=== PATIENT | male | born 1970 | race Caucasian/White ===

== ENCOUNTER 2019-01-23 23:32 | Emergency (ER) | payer BC ==
--- NOTE | 2019-01-23 23:41 | ED ---
General Adult HPI - General Stated complaint: Neuro Deficits Time Seen by Provider: 01/23/19 23:34 - History of Present Illness Initial comments: Dictation was produced using [employer] dictation software. please excuse any grammatical, word or spelling errors. Chief Complaint: 48-year-old male witha past medical history presents with altered mental status. History of Present Illness: Patient is a 48-year-old male with no known medical history. He was in his usual state of health. Last seen normal was at approximately 8:15 this morning. Patient presents today with his . She reports that at approximately 9:45 PM she was on the phone with him he seemed to be okay at the time however was having word finding difficulties over the phone. She got home at approximately 10:15 PM. She went to their mobile home where she found him on the ground unresponsive. He did have his eyes open. He was incontinent to urine. EMS was on scene noted that he has stable vital signs. There is concern that patient is having a neurologic emergency. EMS reports the patient has not been moving the right side of his body. He hasn't followed commands either. The ROS documented in this emergency department record has been reviewed and confirmed by me. Those systems with pertinent positive or negative responses have been documented in the HPI. All other systems are other negative and/or noncontributory. PHYSICAL EXAM: General Impression: No acute distress HEENT: Normocephalic atraumatic, extra-ocular movements intact, pupils equal and reactive to light bilaterally, mucous membranes moist. Cardiovascular: Heart regular rate and rhythm, S1&S2 audible, no murmurs, rubs or gallops Chest: Lungs clear to auscultation bilaterally, no rhonchi, no wheeze, no rales Abdomen: Bowel sounds present, abdomen soft, non-tender, non-distended, no organomegaly Musculoskeletal: Pulses present and equal in all extremities, no peripheral edema Motor: Flaccid paralysis to the right upper and right lower extremity Neurological: Does not follow commands, mute, withdraws from pain of the left upper and left lower extremity. No movement of the right upper or lower extremity. Skin: Intact with no visualized rashes ED course: 48-year-old male presents with acute neuro deficits. Vital signs upon arrival are within acceptable limits. Patient has flaccid paralysis of the right upper and right lower extremity. Patient given an initial NIH of 25. Code stroke was paged. Patient went rapidly to CT and CTA. There appears to be dense lesion in the internal carotid artery of the left side. Patient case was discussed with Dr. Burden who recommends administering rectal aspirin and intravenous fluids. He requests the patient be transferred immediately to [facility] for mechanical thrombectomy. Disposition was discussed with who is agreeable. Patient to be transferred. Patient care accepted by [facility] physician Dr. Dewitt. EKG interpretation: Ventricular rate 61. No WI prolongation, no QTC prolongati on, no ST or T-wave changes noted. EKG compared to [default value] showing no changes. Overall, this EKG is unremarkable - Related Data Home Medications Medication Instructions Recorded Confirmed No Known Home Medications 01/23/19 01/23/19 Allergies Allergy/AdvReac Type Severity Reaction Status Date / Time No Known Allergies Allergy Unverified 01/23/19 23:39 Review of Systems ROS Statement: Those systems with pertinent positive or pertinent negative responses have been documented in the HPI. ROS Other: All systems not noted in ROS Statement are negative. Medical Decision Making - Lab Data Result diagrams: 01/23/19 23:30 Lab Results 01/23/19 Range/Units 23:30 WBC 7.0 (3.8-10.6) k/uL RBC 4.56 (4.30-5.90) m/uL Hgb 13.7 (13.0-17.5) gm/dL Hct 41.3 (39.0-53.0) % MCV 90.5 (80.0-100.0) fL MCH 30.0 (25.0-35.0) pg MCHC 33.1 (31.0-37.0) g/dL RDW 13.3 (11.5-15.5) % Plt Count 130 L (150-450) k/uL Neutrophils % 62 % Lymphocytes % 27 % Monocytes % 6 % Eosinophils % 3 % Basophils % 0 % Neutrophils # 4.3 (1.3-7.7) k/uL Lymphocytes # 1.9 (1.0-4.8) k/uL Monocytes # 0.4 (0-1.0) k/uL Eosinophils # 0.2 (0-0.7) k/uL Basophils # 0.0 (0-0.2) k/uL Disposition Clinical Impression: Cerebrovascular accident Disposition: OTHER INSTITUTION NOT DEFINED Condition: Critical Referrals: Sadia Martino DO [Primary Care Provider] - 1-2 days Time of Disposition: 00:07 - Out of Hospital Transfer - Req. Specs Out of Hospital Transfer - Requested Specifics: Other Emergency Center ([facility] for neuroendovascular procedure)
[2019-01-23 23:49] LABS: Basophils % (A) 0 %; Eosinophils # (A) 0.2 k/uL (0-0.7); Eosinophils % (A) 3 %; HCT 41.3 % (39.0-53.0); HGB 13.7 gm/dL (13.0-17.5); Lymphocytes # (A) 1.9 k/uL (1.0-4.8); Lymphocytes % (A) 27 %; MCHC 33.1 g/dL (31.0-37.0); MCV 90.5 fL (80.0-100.0); Mean Platelet Volume 7.7; Monocytes # (A) 0.4 k/uL (0-1.0); Monocytes % (A) 6 %; Neutrophils # (A) 4.3 k/uL (1.3-7.7); Neutrophils % (A) 62 %; Platelet Count 130 k/uL (150-450); RBC 4.56 m/uL (4.30-5.90); RDW 13.3 % (11.5-15.5)
[2019-01-24] MEDS ORDERED: ASPIRIN 600 MG SUPP RECTAL STA
[2019-01-24] MEDS ORDERED: SODIUM CHLORIDE 0.9% 1,000 ML IV STA (00:02)
--- NOTE | 2019-01-24 00:09 | ED ---
Medical Decision Making - Lab Data Result diagrams: 01/23/19 23:30 Lab Results 01/23/19 Range/Units 23:30 WBC 7.0 (3.8-10.6) k/uL RBC 4.56 (4.30-5.90) m/uL Hgb 13.7 (13.0-17.5) gm/dL Hct 41.3 (39.0-53.0) % MCV 90.5 (80.0-100.0) fL MCH 30.0 (25.0-35.0) pg MCHC 33.1 (31.0-37.0) g/dL RDW 13.3 (11.5-15.5) % Plt Count 130 L (150-450) k/uL Neutrophils % 62 % Lymphocytes % 27 % Monocytes % 6 % Eosinophils % 3 % Basophils % 0 % Neutrophils # 4.3 (1.3-7.7) k/uL Lymphocytes # 1.9 (1.0-4.8) k/uL Monocytes # 0.4 (0-1.0) k/uL Eosinophils # 0.2 (0-0.7) k/uL Basophils # 0.0 (0-0.2) k/uL Critical Care Time Critical Care Time: Yes Total Critical Care Time: 31 Disposition Clinical Impression: Cerebrovascular accident Disposition: OTHER INSTITUTION NOT DEFINED Condition: Critical Referrals: Sadia Martino DO [Primary Care Provider] - 1-2 days - Out of Hospital Transfer - Req. Specs Out of Hospital Transfer - Requested Specifics: Other Emergency Center
[2019-01-24 00:10] LABS: Creatine Kinase 98 U/L (55-170)
[2019-01-24 00:11] VITALS: TEMP 96
--- NOTE | 2019-01-24 00:12 | CT ---
EXAM: CT Head Without Intravenous Contrast CLINICAL HISTORY: ITS.REASON CT Reason: neuro deficits TECHNIQUE: Axial computed tomography images of the head/brain without intravenous contrast. CTDI is 57.7 mGy and DLP is 1338 mGy-cm. This CT exam was performed using one or more of the following dose reduction techniques: automated exposure control, adjustment of the mA and/or kV according to patient size, and/or use of iterative reconstruction technique. COMPARISON: None FINDINGS: Brain: No acute infarct or hemorrhage. No extra-axial fluid collection. No mass effect or midline shift. Ventricles and sulci: Normal. No ventriculomegaly or intraventricular hemorrhage. Skull: Normal. No bony lesion or fracture. Subcutaneous tissues: Normal. Sinuses: Mild mucosal thickening in the right maxillary sinus and right sphenoid sinus. Mastoid air cells: Normal. Orbits: Grossly unremarkable. Other: Hyperdense left MCA which may represent thrombus. IMPRESSION: No definite acute infarct changes identified on this exam, but given the probable thrombus in the left MCA (hyperdense left MCA), recommend further evaluation with MRI.
--- NOTE | 2019-01-24 00:19 | CT ---
EXAM: CT Angiography Head With Intravenous Contrast CLINICAL HISTORY: ITS.REASON CT Reason: Neuro Deficits TECHNIQUE: Axial computed tomographic angiography images of the head with intravenous contrast using CT angiography protocol. CTDI is 11.2 mGy and DLP is 493.2 mGy-cm. This CT exam was performed using one or more of the following dose reduction techniques: automated exposure control, adjustment of the mA and/or kV according to patient size, and/or use of iterative reconstruction technique. MIP reconstructed images were created and reviewed. COMPARISON: None FINDINGS: Right internal carotid artery: No acute findings. Intracranial segment is patent with no significant stenosis. No aneurysm. Right anterior cerebral artery: Unremarkable. No occlusion or significant stenosis. No aneurysm. Right middle cerebral artery: Unremarkable. No occlusion or significant stenosis. No aneurysm. Right posterior cerebral artery: Unremarkable. No occlusion or significant stenosis. No aneurysm. Right vertebral artery: Unremarkable as visualized. Left internal carotid artery: Occlusion of the left internal carotid artery. Reconstitution of flow in the supraclinoid portion of the distal left ICA which may be via retrograde flow from the left anterior cerebral artery. No aneurysm. Left anterior cerebral artery: See above. Left middle cerebral artery: Occlusion of the left MCA with some reconstitution of flow in the cortical branch vessels. No aneurysm. Left posterior cerebral artery: Unremarkable. No occlusion or significant stenosis. No aneurysm. Left vertebral artery: Unremarkable as visualized. Basilar artery: Unremarkable. No occlusion or significant stenosis. No aneurysm. IMPRESSION: 1. Occlusion of the left internal carotid artery. Reconstitution of flow in the supraclinoid portion of the distal left ICA which may be via retrograde flow from the left anterior cerebral artery. 2. Occlusion of the left MCA with some reconstitution of flow in the cortical branch vessels. EXAM: CT Angiography Neck With Intravenous Contrast CLINICAL HISTORY: ITS.REASON CT Reason: Neuro Deficits TECHNIQUE: Axial computed tomographic angiography images of the neck with intravenous contrast using CT angiography protocol. CTDI is 11.2 mGy and DLP is 493.2 mGy-cm. This CT exam was performed using one or more of the following dose reduction techniques: automated exposure control, adjustment of the mA and/or kV according to patient size, and/or use of iterative reconstruction technique. MIP reconstructed images were created and reviewed. COMPARISON: None FINDINGS: VASCULATURE: Right common carotid artery: Unremarkable. No significant stenosis. No dissection or occlusion. Right internal carotid artery: Minimal atherosclerotic calcification in the right carotid bulb without significant stenosis. No dissection or occlusion. Right external carotid artery: Unremarkable. No occlusion. Right vertebral artery: Unremarkable. No significant stenosis. No dissection or occlusion. Left common carotid artery: Unremarkable. No significant stenosis. No dissection or occlusion. Left internal carotid artery: Occlusion of the left ICA. Left external carotid artery: Unremarkable. No occlusion. Left vertebral artery: Unremarkable. No significant stenosis. No dissection or occlusion. NECK: Bones/joints: No acute fracture. No dislocation. Soft tissues: Unremarkable as visualized. No mass. Dental: Dental disease. Thyroid: Punctate calcification in the left thyroid could be further evaluated with nonemergent dedicated ultrasound clinically indicated. 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 CAROTID STENOSIS REFERENCE USING NASCET CRITERIA: % ICA stenosis = (1 - narrowest ICA diameter/diameter of distal cervical ICA) x 100. Mild - <50% stenosis. Moderate - 50-69% stenosis. Severe - 70-94% stenosis. Near occlusion - 95-99% stenosis. Occluded - 100% stenosis. IMPRESSION: Occlusion of the left ICA. <MYCVCSECTION> Critical Value Communications 01/24/19 00:19 Call Doctor Regarding Critical stenosis/arterial occlusion, called Dr. Rosario on 01/24 00:18 (-04:00)
[2019-01-24 00:20] LABS: INR 0.9 (<1.2); Partial Thromboplastin Time 26.4 sec (22.0-30.0); Prothrombin Time 9.8 sec (9.0-12.0)
--- NOTE | 2019-01-24 00:21 | XR ---
EXAM: XR Chest, 1 View CLINICAL HISTORY: ITS.REASON XR Reason: altered mental status TECHNIQUE: Frontal view of the chest. COMPARISON: None FINDINGS: Hardware: None. Lungs/pleura: Right basilar opacity likely represents atelectasis. Elevation of the right hemidiaphragm. No pleural effusion or pneumothorax. Heart/mediastinum: Normal. No cardiomegaly. Soft tissues: Unremarkable. Bones: No acute fracture. Upper abdomen: Normal. IMPRESSION: Elevation of the right hemidiaphragm with right basilar atelectasis.
[2019-01-24 00:23] LABS: Creatine Kinase MB 0.4 ng/mL (0.0-2.4); Troponin I <0.012 ng/mL (0.000-0.034)
[2019-01-24 00:42] LABS: ALT 24 U/L (21-72); AST 20 U/L (17-59); Albumin 3.5 g/dL (3.5-5.0); Alkaline Phosphatase 58 U/L (38-126); Anion Gap 8 mmol/L; Blood Urea Nitrogen 16 mg/dL (9-20); Calcium 7.9 mg/dL (8.4-10.2); Carbon Dioxide 19 mmol/L (22-30); Chloride 114 mmol/L (98-107); Glucose 82 mg/dL (74-99); Potassium 3.5 mmol/L (3.5-5.1); Sodium 141 mmol/L (137-145); Total Bilirubin 0.3 mg/dL (0.2-1.3); Total Protein 5.9 g/dL (6.3-8.2)
[2019-01-24 00:48] LABS: Amorphous Sediment,Urine Rare /hpf; Appearance,Urine Clear (Clear); Bilirubin,Urine Negative (Negative); Blood,Urine Negative (Negative); Color,Urine Yellow; Glucose,Urine (UA) Negative (Negative); Ketones,Urine Negative (Negative); Leukocyte Esterase,Urine Negative (Negative); Mucus,Urine Rare /hpf; Nitrite,Urine Negative (Negative); PH, Urine 7.5 (5.0-8.0); Protein,Urine Negative (Negative); RBC,Urine 1 /hpf (0-5); Specific Gravity,Urine 1.039 (1.001-1.035); Urobilinogen,Urine <2.0 mg/dL (<2.0)
[2019-01-24 00:58] VITALS: PULSE 93
[2019-01-24 01:01] LABS: Amphetamine Screen,Urine Not Detected (NotDetected); Barbiturate Screen,Urine Not Detected (NotDetected); Benzodiazepines Screen,Urine Not Detected (NotDetected); Cocaine Screen,Urine Not Detected (NotDetected); Methadone Screen, Urine Not Detected (NotDetected); Opiate Screen,Urine Not Detected (NotDetected); Oxycodone Screen, Urine Not Detected (NotDetected); Phencyclidine Screen,Urine Not Detected (NotDetected); Tricyclic Antidepressant,Urine Not Detected (NotDetected); Urn Cannabinoid Scrn Detected (NotDetected)
[2019-01-24 01:02] VITALS: BP 201/111; RESP 16
== END 2019-01-24 00:40 | disposition other institution (70) ==
LOC: EC 23:32
DX: I63.9 Cerebral infarction, unspecified (principal); R32 Unspecified urinary incontinence
CPT/HCPCS: 36415; 93005; 80053; 82550; 82553; 84484; 85025; 85610; 85730; 81003; 80306; 71045; 70496; 70450; 70498; 99291; Q9967

== ENCOUNTER → 2019-05-29 | Outpatient (CLI) | payer BC ==
--- NOTE | 2019-05-29 14:48 | CT ---
EXAMINATION TYPE: CT angio head neck DATE OF EXAM: 05/29/2019 COMPARISON: January 23, 2019 HISTORY: Carotid stenosis, hx of stroke CT DLP: 324.2 mGycm CONTRAST: Performed with IV Contrast, patient injected with 50 mL of Isovue 370. Combination Contrast CTA cervical carotids and [place] CTA cervical carotids with 3-D recons truction Contrast CTA of the cervical carotids was performed 3-D reconstruction imaging obtained at a separate workstation. Right carotid system: Mild plaque is seen of the right common carotid artery. There is mild plaque a lso noted at the carotid bulb and proximal ICA. No significant diameter reduction. ECA is patent. Right vertebral artery appears unremarkable. Left carotid system: Mild plaque is seen of the left common carotid artery. There is moderate plaque also noted at the carotid bulb and proximal ICA. Estimated diameter reduction is approximately 80%. ECA is patent. Left vertebral artery appears unremarkable. IMPRESSION: 1. 80% stenosis proximal left ICA approximately 9 mm from its origin. CTA [place] with 3-D reconstruction Contrast CTA of the [place] was performed 3-D reconstruction imaging obtained at a separate workstation. Vertebrobasilar system as well as intracranial portions of the internal carotid arteries and their ma [place] tributaries are patent. I do not see evidence for sizable aneurysm or vascular malformation. Pl ease note MRI provides greater sensitivity and specificity. Visualized brain appears grossly unremar kable. IMPRESSION: 1. No significant abnormality.
== END | disposition home or self-care (01) ==
LOC: RADCTMAIN 14:00
PROVIDERS: ATTEND Surgery
DX: I65.22 Occlusion and stenosis of left carotid artery (principal)
CPT/HCPCS: 70496; 70498; Q9967

== ENCOUNTER → 2020-11-02 | Outpatient (CLI) | payer BC ==
--- NOTE | 2020-11-02 21:40 | MR ---
EXAMINATION TYPE: MR shoulder RT wo con DATE OF EXAM: 11/02/2020 COMPARISON: None available. HISTORY: Right shoulder pain, problems recovering from stroke. TECHNIQUE: Multiplanar, multisequence imaging of the right shoulder is performed without contrast. FINDINGS: Rotator Cuff: Moderate to high grade, articular surface partial thickness tear of the supraspinatus m id and posterior fibers. There is also moderate grade partial-thickness tear of the infraspinatus ten dons. There is mild tendinosis of the subscapularis tendon without significant air is seen. The teres minor tendon is grossly intact. Mild atrophy of the supraspinatus muscle. No muscular edema. Acromioclavicular Joint: Moderate osteoarthritis. Glenohumeral Joint: Moderate to severe osteoarthritis. Labrum: Degenerative tearing of the glenohumeral. Biceps Tendon: Moderate tendinosis of the intra-articular long head of biceps. Otherwise normal locat ion within bicipital groove. Bone marrow signal: Degenerative subchondral cystic change is seen. Otherwise no focal abnormal marro w signal is appreciated. Other: No additional significant abnormality is appreciated. IMPRESSION: Moderate to high-grade partial-thickness tear of the supraspinatus tendon. Also moderate grade partia l-thickness tear of the infraspinatus tendon. Moderate to severe osteoarthritis.
== END | disposition home or self-care (01) ==
LOC: RADMRIMAIN 15:39
PROVIDERS: ATTEND Family Medicine
DX: M19.011 Primary osteoarthritis, right shoulder (principal)